=== PATIENT | male | born 1950 | race Caucasian/White ===

== ENCOUNTER 2023-07-31 06:07 | Day surgery (SDC) | payer OTHER ==
[~2023-07-31] VITALS: Ht 167.6 cm; Wt 82.6 kg
[2023-07-31] MEDS ORDERED: MEPERIDINE 100 MG INJ. 100 MG/ML VIAL ONE (06:53)
[2023-07-31] MEDS ORDERED: MIDAZOLAM HCL 5 MG/5 ML VIAL ONE (06:54)
[2023-07-31] MEDS ORDERED: SIMETHICONE 40 MG/0.6 ML ML ONE (07:06)
[2023-07-31 07:15] VITALS: O2SAT 98
[2023-07-31 12:23] VITALS: BP_SYST 135; PULSE 81; RESP 17
== END 2023-07-31 09:55 | disposition home or self-care (01) ==
LOC: SDS 06:07 → SMU 06:09 → SDS 09:55
PROVIDERS: ATTEND Internal Medicine Gastroenterology
DX: Z12.11 Encounter for screening for malignant neoplasm of colon (principal); D12.3 Benign neoplasm of transverse colon; K64.8 Other hemorrhoids; E78.5 Hyperlipidemia, unspecified; Z86.010 Personal history of colon polyps; I10 Essential (primary) hypertension; E11.9 Type 2 diabetes mellitus without complications; Z79.84 Long term (current) use of oral hypoglycemic drugs; Z79.899 Other long term (current) drug therapy
CPT/HCPCS: 45385; 99152; 82962; 88305; G0378; J2250; J2175